=== PATIENT | male | born 1990 | race Two or more races ===

== ENCOUNTER 2018-10-12 16:38 | Emergency (ER) | payer MEDICAID ==
[~2018-10-12] VITALS: Ht 177.8 cm; Wt 113.4 kg
[2018-10-12 17:36] LABS: Urine Bacteria NONE SEEN /hpf (None Seen); Urine Blood Negative /uL (Negative); Urine Specific Gravity 1.001 (1.001-1.035); Urine WBC <1 /hpf (0 - 3)
[2018-10-12 18:25] VITALS: BP 155/77
[2018-10-12] MEDS ORDERED: BACITRACIN-POLYMYXIN B TOPICAL OINT UD TOP ONE (18:34)
== END 2018-10-12 23:15 | disposition home or self-care (01) ==
LOC: ER 16:38
DX: S13.9XXA Sprain of joints and ligaments of unspecified parts of neck, initial encounter (principal); S00.01XA Abrasion of scalp, initial encounter; F10.920 Alcohol use, unspecified with intoxication, uncomplicated; Y90.0 Blood alcohol level of less than 20 mg/100 ml; V49.49XA Driver injured in collision with other motor vehicles in traffic accident, initial encounter; Y93.89 Activity, other specified; Y99.8 Other external cause status; Y92.410 Unspecified street and highway as the place of occurrence of the external cause
CPT/HCPCS: 36415; 70450; 72125; 73030; 80320; 81001

== ENCOUNTER 2021-04-17 20:01 | Emergency (ER) | payer MEDICAID ==
[~2021-04-17] VITALS: Ht 177.8 cm; Wt 108.9 kg
[2021-04-17 23:30] LABS: Basophils # (auto) 0 10 ^3/uL (0-0.2); Basophils % (auto) 0.4 % (0.0-2.0); Eosinophils # (auto) 0.2 10 ^3/uL (0-0.8); Hematocrit 40.6 % (41.0-53.0); Hemoglobin 14.4 g/dL (13.5-17.5); Lymphocytes # (auto) 2.5 10 ^3/uL (0.4-5.4); Lymphocytes % (auto) 21.2 % (10.0-50.0); Mean Corpuscular Hemoglobin 30.9 pg (28.0-32.0); Mean Corpuscular Hgb Conc. 35.4 g/dL (32.0-36.0); Mean Corpuscular Volume 87.3 fL (80.0-100.0); Monocytes # (auto) 1.3 10 ^3/uL (0-1.3); Monocytes % (auto) 11.2 % (0.0-12.0); Neutrophils # (auto) 7.7 10 ^3/uL (1.6-8.6); Neutrophils % (auto) 65.2 % (37.0-80.0); Nucleated Red Blood Cells % 0.1 %; Platelet Count (auto) 244 10^3/uL (140-450); Red Blood Cells 4.65 10^6/uL (4.5-5.90); Red Cell Distribution Width 12.4 % (11.8-14.3); White Blood Cell 11.8 10^3/uL (4.4-10.8)
[2021-04-17 23:47] LABS: Albumin 3.4 g/dL (3.4-5.0); Calcium 8.6 mg/dL (8.5-10.1); Potassium 3.9 mmol/L (3.5-5.1)
[2021-04-17 23:50] LABS: BUN/Creatinine Ratio 13.8
[2021-04-17 23:53] LABS: Bilirubin, Total 0.4 mg/dL (0.2-1.0); Total Protein 7.7 g/dL (6.4-8.2)
[2021-04-18 01:10] VITALS: BP 130/78
== END 2021-04-18 01:16 | disposition home or self-care (01) ==
LOC: ER 20:05
DX: A08.4 Viral intestinal infection, unspecified (principal)
CPT/HCPCS: 36415; 74176; 80053; 83690; 85025

== ENCOUNTER 2022-08-12 01:10 | Emergency (ER) | payer MEDICAID ==
[~2022-08-12] VITALS: Ht 177.8 cm; Wt 117.3 kg
[2022-08-12 02:18] VITALS: BP 128/53
== END 2022-08-12 06:58 | disposition left against medical advice (07) ==
LOC: ER 01:10
DX: R10.32 Left lower quadrant pain (principal); R19.7 Diarrhea, unspecified; Z53.21 Procedure and treatment not carried out due to patient leaving prior to being seen by health care provider

== ENCOUNTER 2023-11-16 03:48 | Emergency (ER) | payer SELFPAY ==
[~2023-11-16] VITALS: Ht 177.8 cm; Wt 106.6 kg
[2023-11-16 03:56] VITALS: BP 116/79; PULSE 87; RESP 16; TEMP 98.1; O2SAT 100
[2023-11-16] MEDS ORDERED: KETOROLAC TROMETH 30 MG/ML 1ML VIAL IM ONE (04:30)
== END 2023-11-16 06:04 | disposition home or self-care (01) ==
LOC: EDBD 03:48 → ER 03:48
DX: S02.2XXA Fracture of nasal bones, initial encounter for closed fracture (principal); R51.9 Headache, unspecified; Y08.89XA Assault by other specified means, initial encounter; Y93.89 Activity, other specified; Y92.89 Other specified places as the place of occurrence of the external cause; Y99.8 Other external cause status
CPT/HCPCS: 70450; 70486; 72125; 96372; 99285; J1885